=== PATIENT | male | born 1965 | race African-American/Black ===

== ENCOUNTER 2017-08-27 17:51 | Emergency (ER) | payer OTHER ==
--- NOTE | 2017-08-27 18:55 | RAD ---
RIGHT FOOT THREE VIEWS: Date: 08-27-17 FINDINGS: No fracture, dislocation, or acute bony change was seen. The joints appear normal. IMPRESSION: No acute findings. POS: HOME
== END 2017-08-27 18:15 | disposition home or self-care (01) ==
LOC: BURERS 17:51
DX: S90.31XA Contusion of right foot, initial encounter (principal); E11.9 Type 2 diabetes mellitus without complications; E78.5 Hyperlipidemia, unspecified; I10 Essential (primary) hypertension; Z87.891 Personal history of nicotine dependence; Z79.899 Other long term (current) drug therapy; Z79.84 Long term (current) use of oral hypoglycemic drugs; Z79.82 Long term (current) use of aspirin; W22.8XXA Striking against or struck by other objects, initial encounter

== ENCOUNTER 2025-04-29 14:37 | Outpatient (CLI) | payer BC | END 2025-04-29 14:38 | disposition home or self-care (01) | LOC: BURRAD 14:37 | PROVIDERS: ATTEND Nurse Practitioner Family | DX: R06.2 Wheezing (principal) | CPT/HCPCS: 71046 ==